=== PATIENT | female | born 1995 | race Caucasian/White ===

== ENCOUNTER 2022-01-21 11:55 | Emergency (ER) | payer BC ==
[2022-01-21] MEDS ORDERED: traMADol 50 MG Tab PO ONE (12:32)
[2022-01-21] MEDS ORDERED: Diphtheria,Pertussis(Acell),Tetanus Vaccine 0.5 ML SDV IM ONE (12:33)
== END 2022-01-21 13:07 | disposition home or self-care (01) ==
LOC: MERGE 11:55 → LB.ED 11:55
DX: S60.022A Contusion of left index finger without damage to nail, initial encounter (principal); Z23 Encounter for immunization; W22.09XA Striking against other stationary object, initial encounter
CPT/HCPCS: 73140-F1; 90471; 90715; 99281; 99283-25; A9270-GY